=== PATIENT | female | born 1975 | race Caucasian/White ===

== ENCOUNTER 2020-02-18 21:12 | Emergency (ER) | payer BC ==
[~2020-02-18] VITALS: Ht 170.2 cm; Wt 61.2 kg
--- NOTE | 2020-02-18 21:20 | NUR ---
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 PT DENIES SOB OR N/. -DIAPHORESIS. PT ADMITS TO HAVING STRESSORS AND IS CURRENTLY TAKING XANAZ FOR ANXIETY ATTACK. PT AAOX4, VSS, RESPIRATIONS EVEN AND UNLABORED ON RA W/ NAD NOTED. 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
--- NOTE | 2020-02-18 21:30 | NUR ---
BLOOD COLLECTED AND SENT TO LAB
[2020-02-18] MEDS ORDERED: LORAZEPAM 1 MG TABLET ONE (21:33)
[2020-02-18] MEDS ORDERED: ASPIRIN 325 MG TABLET ONE (21:33)
[2020-02-18 21:35] LABS: BASOPHILS # (AUTO) 0.1 /CMM (0.0-0.2); BASOPHILS % (AUTO) 1.2 % (0.0-2.0); EOSINOPHILS % (AUTO) 1.1 % (0.0-6.0); HEMATOCRIT 42 % (33-45); HEMOGLOBIN 13.8 g/dL (11.5-14.8); LYMPHOCYTES # (AUTO) 2.8 /CMM (0.8-4.8); LYMPHOCYTES % (AUTO) 41.7 % (20.0-44.0); MEAN CORPUSCULAR HGB CONC 33 g/dl (31.0-36.0); MEAN CORPUSCULAR VOLUME 94 fL (82-100); MONOCYTES # (AUTO) 0.6 /CMM (0.1-1.30); MONOCYTES % (AUTO) 9.5 % (2.0-12.0); NEUTROPHILS # (AUTO) 3.2 /CMM (1.8-8.9); NEUTROPHILS % (AUTO) 46.5 % (43.0-81.0); PLATELET COUNT (AUTO) 304 /CMM (150-450); RED BLOOD CELL COUNT(AUTO) 4.44 MIL/uL (4.0-5.2); WHITE BLOOD COUNT (AUTO) 6.8 K/uL (4.3-11.0)
[2020-02-18] MEDS: ASPIRIN 325 MG TABLET PO ONE (21:36)
[2020-02-18] MEDS: LORAZEPAM 1 MG TABLET PO ONE (21:36)
[2020-02-18 22:03] LABS: ALANINE AMINOTRANSFERASE 22 U/L (12-78); ALBUMIN 4.3 g/dL (3.4-5.0); ALKALINE PHOSPHATASE 35 U/L (46-116); ASPARTATE AMINOTRANSFERASE 18 U/L (15-37); BILIRUBIN,DIRECT 0.2 mg/dL (0.0-0.2); BILIRUBIN,TOTAL 0.5 mg/dL (0.2-1.0); CARBON DIOXIDE 27 mmol/L (21-32); CHLORIDE 101 mmol/L (98-107); CREATININE 0.7 mg/dL (0.6-1.3); GLUCOSE 96 mg/dL (74-106); POTASSIUM 3.2 mmol/L (3.5-5.1); SODIUM SERUM 137 mmol/L (136-145); UREA NITROGEN, BLOOD 9 mg/dL (7-18)
--- NOTE | 2020-02-18 22:20 | NUR ---
[facility] AT BEDSIDE
[2020-02-18] MEDS: POTASSIUM CHLORIDE 20 MEQ TAB.PRT.SR PO ONE ×2 (22:52)
[2020-02-18 23:00] VITALS: BP 121/84
--- NOTE | 2020-02-18 23:00 | NUR ---
Patient discharged to home in stable condition. Written and verbal after care instructions given. Patient verbalizes understanding of instruction.IV removed. Catheter intact and site benign. Pressure and 4x4 applied to site. No bleeding noted.pt. ambulatory with a steady gait
== END 2020-02-18 23:09 | disposition home or self-care (01) ==
LOC: ER 21:12
DX: F41.0 Panic disorder [episodic paroxysmal anxiety] (principal); R07.89 Other chest pain; R45.7 State of emotional shock and stress, unspecified; G47.00 Insomnia, unspecified; R00.2 Palpitations; R42 Dizziness and giddiness; F32.9 Major depressive disorder, single episode, unspecified
CPT/HCPCS: 36415; 71045-TC; 80048-TC; 80076-TC; 84484-TC; 85025-TC

== ENCOUNTER 2021-08-03 18:57 | Emergency (ER) | payer BC ==
[~2021-08-03] VITALS: Ht 170.2 cm; Wt 64.4 kg
[2021-08-03 19:02] VITALS: BP 119/70
[2021-08-03] MEDS ORDERED: ALPRAZOLAM 0.5 MG TABLET ONE (19:44)
[2021-08-03] MEDS ORDERED: ALPR0.5T PO (19:55)
[2021-08-03] MEDS ORDERED: ALPRAZOLAM 0.5 MG TABLET PO ONE (20:00)
--- NOTE | 2021-08-03 20:00 | NUR ---
Patient discharged to home in stable condition. Written and verbal after care instructions given. Patient verbalizes understanding of instruction.
== END 2021-08-03 20:06 | disposition home or self-care (01) ==
LOC: ER 19:02
DX: F41.0 Panic disorder [episodic paroxysmal anxiety] (principal); R06.4 Hyperventilation
CPT/HCPCS: 71045-TC